=== PATIENT | female | born 1955 | race Caucasian/White ===

== ENCOUNTER 2016-05-09 12:19 | Emergency (ER) | payer OTHER | END 2016-05-09 17:19 | disposition home or self-care (01) | LOC: ER 12:19 | DX: I10 Essential (primary) hypertension (principal); E11.9 Type 2 diabetes mellitus without complications; Z79.899 Other long term (current) drug therapy; Z79.84 Long term (current) use of oral hypoglycemic drugs | CPT/HCPCS: 36415 ==

== ENCOUNTER 2016-08-23 10:46 | Emergency (ER) | payer MEDICARE, OTHER | END 2016-08-23 14:20 | disposition home or self-care (01) | LOC: ER 10:46 | DX: N39.0 Urinary tract infection, site not specified (principal); E11.9 Type 2 diabetes mellitus without complications; I10 Essential (primary) hypertension; E78.5 Hyperlipidemia, unspecified; Z79.84 Long term (current) use of oral hypoglycemic drugs; Z79.899 Other long term (current) drug therapy; Z98.2 Presence of cerebrospinal fluid drainage device | CPT/HCPCS: 36415 ==